=== PATIENT | male | born 1990 | race Caucasian/White ===

== ENCOUNTER 2023-12-01 16:03 | Emergency (ER) | payer BC ==
[2023-12-01 16:32] VITALS: BP 110/67; PULSE 66; RESP 16; TEMP 98.1; BMI 25.8
[2023-12-01 17:05] LABS: HEMATOCRIT 43.8 % (35.4-49); HEMOGLOBIN 14.5 G/dL (11.7-16.9); MCHC 33.1 g/dl (32.0-35.9); MEAN CELL VOLUME 90.7 fl (80-96); MEAN PLT VOLUME 8.3 fl (7.5-11.1); PLATELET COUNT 337.6 10^3/uL (134-434); RBC 4.83 10^6/uL (4.00-5.60); RDW 13.7 % (11.9-15.9); WHITE BLOOD COUNT 7.9 10^3/uL (4.0-10.8)
[2023-12-01 17:25] LABS: ALBUMIN 4.5 g/dl (3.4-5.0); BILIRUBIN,TOTAL 0.5 mg/dl (0.2-1); CALCIUM 9.7 mg/dl (8.5-10.1); CREATININE 1.1 mg/dl (0.6-1.3); POTASSIUM 4.3 mmol/L (3.5-5.1); TOT PROT 6.8 g/dl (6.4-8.2)
[2023-12-01 17:29] LABS: PLATELET ESTIMATE ADEQUATE
[2023-12-01] MEDS ORDERED: KETOROLAC TROMETHAMINE 15 MG/ML VIAL ONE (19:18)
[2023-12-01] MEDS: KETOROLAC TROMETHAMINE 15 MG/ML VIAL IVPUSH ONE (19:21)
== END 2023-12-01 19:22 | disposition home or self-care (01) ==
LOC: FER 16:03
PROC: 3E0303Z Introduction of Anti-inflammatory into Peripheral Vein, Open Approach (ICD-10-PCS; principal; 2023-12-01)
DX: K65.9 Peritonitis, unspecified (principal); R10.32 Left lower quadrant pain; R68.83 Chills (without fever)
CPT/HCPCS: 36415; 74177-TC; 80053; 81003; 85027; 87086; 99285-25; Q9967